=== PATIENT | female | born 1960 | race African-American/Black ===

== ENCOUNTER → 2020-06-22 13:52 | Outpatient (CLI) | payer BC, SELFPAY ==
--- NOTE | ~2020-06-22 | US_ITS ---
EXAMINATION: US abdomen complete EXAM DATE: 06/22/2020 14:13 INDICATION: Epigastric chest pain, irregular bowel movements. Bloating, gas. Cholecystectomy. TECHNIQUE: Multiple grayscale and Doppler images of the complete abdomen were obtained (by a technolo gist who performed the scan) and subsequently reviewed. Comparison is made to prior examination from 05/02/2015. FINDINGS: The abdominal aorta is normal in caliber. Visualized portion IVC is patent. The pancreatic head a nd body are normal in appearance. The pancreatic tail is not visualized. Mildly echogenic liver parenchyma, hepatic steatosis. There are no focal liver lesions identified. There is no evidence of intrahepatic biliary duct dilation. Portal venous flow was seen in the hepa topedal, normal direction and has normal Doppler waveform. Common bile duct measures 7 mm, which is normal. The gallbladder fossa is unremarkable. Right kidney: There is normal contour and echogenicity. It measures 11.3 x 3.7 x 5.7 centimeters. There are no focal renal lesions identified. There is no hydronephrosis. Left kidney: There is normal contour and echogenicity. It measures 10.3 x 4.2 x 5.5 centimeters. T here are no focal renal lesions identified. There is no hydronephrosis. The spleen measures 7 centimeters and is morphologically normal. IMPRESSION: 1. Hepatic steatosis. Reviewed, dictated and finalized at location B. IMPRESSION: 1. Hepatic steatosis.
== END ==
PROVIDERS: PCP Family Medicine; Visit Provider Family Medicine
DX: R10.13 Epigastric pain (principal); K76.0 Fatty (change of) liver, not elsewhere classified
CPT/HCPCS: 76700

== ENCOUNTER 2020-11-18 09:07 | Outpatient (CLI) | payer BC, SELFPAY ==
--- NOTE | ~2020-11-18 | MM_ITS ---
EXAMINATION: MM screening [facility] BI w julian HISTORY: Screening TECHNIQUE: Craniocaudal and mediolateral oblique 3-D tomosynthesis images were obtained and synthetic 2-D images were generated. CAD analysis was submitted and interpreted. COMPARISON: Comparison to multiple prior studies sequentially, with oldest reviewed study dated 11/22. BREAST PARENCHYMAL COMPOSITION: There are scattered areas of fibroglandular density. FINDINGS: Stable benign left breast mass, lower central aspect. Stable benign-appearing bilateral dante ast calcifications. There is no evidence of suspicious mass, calcification, or architectural distorti on to suggest malignancy in either breast. There has been no suspicious interval change. IMPRESSION: 1. No mammographic evidence of malignancy. 2. Recommend routine screening mammography in one year. BI-RADS Category 2: Benign finding(s). Reviewed, dictated and finalized at location A. 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
== END 2020-11-18 09:08 | disposition home or self-care (01) ==
LOC: ANHIMG 09:09
PROVIDERS: PCP Family Medicine; Visit Provider Nurse Practitioner
DX: Z12.31 Encounter for screening mammogram for malignant neoplasm of breast (principal)
CPT/HCPCS: 77063; 77067

== ENCOUNTER 2021-12-10 12:37 | Outpatient (CLI) | payer BC, SELFPAY ==
[2021-12-10 13:34] LABS: Anion Gap 7 mmol/L (8-16); Blood Urea Nitrogen 14 mg/dL (7-17); Calcium 9.4 mg/dL (8.4-10.2); Carbon Dioxide 32 mmol/L (22-30); Chloride 100 mmol/L (98-107); Estimated Glomerular Filt Rate > 60; Glucose 96 mg/dL (65-110); Potassium 3.7 mmol/L (3.4-5.0); Sodium 139 mmol/L (137-145)
== END 2021-12-10 12:38 | disposition home or self-care (01) ==
PROVIDERS: PCP Family Medicine; Visit Provider Anesthesiology
DX: Z01.818 Encounter for other preprocedural examination (principal); R73.03 Prediabetes; I10 Essential (primary) hypertension
CPT/HCPCS: 36415; 80048

== ENCOUNTER 2021-12-15 00:13 | Day surgery (SDC) | payer BC, SELFPAY ==
[2021-12-07 09:32] VITALS: BMI 32.0
--- NOTE | 2021-12-07 09:33 | PC.NURSE ---
Report to the Outpatient Waiting Room, entrance under the green pavilion located off [facility], at time _0700__ on date _12-15-21_. OR Time: _0900_. - You will be asked a series of questions to screen for COVID 19 for your protection. - A mask is required within the hospital. - No visitors are allowed at this time. Preoperative COVID Testing Requirements: No COVID Test needed if: (proof is required; if not received patient will have Rapid Test prior to entry) - Patient has received COVID Vaccine at least 14 days prior to procedure date or - Patient has positive COVID test result within last 90 days of surgery date. COVID Test needed if above criteria is not met If not COVID vaccinated a COVID test must be conducted within 72 hours of surgery and patient is asked to isolate self from time of testing until procedure. You will go to the [employer] [facility] Testing Site for your COVID testing. The [employer] [facility] Testing site is located at the corner of [address] from [facility]. You will only be called if COVID results are positive and your surgeon may reschedule your elective surgery date. Patients may have clear liquids (water, carbonated beverages, clear teas, apple juice) until 3 hours prior to surgery with a maximum of 20 ounces. - No food from midnight until time of surgery - Infants may have breast milk until 4 hours before surgery, formula 6 hours prior to surgery. - Children will be allowed to drink immediately following surgery. If applicable, please bring a bottle or sippy cup to assist with drinking. Juice, water, soda, and popsicles are readily available. For infants on formula, please bring formula the day of surgery. Pacifiers are allowed. Take the following medications with a SIP of water the morning of surgery: Aripiprazole and flonase Medications to discontinue per physician Date to take last dose Please no make-up, nail maltese, hairspray, perfume, deodorant, or body powder the day of surgery. No jewelry (including any body piercings) or valuables the day of surgery, leave them at home. Please take a shower or bath the night before, or the morning of, surgery with an antibacterial soap. Wear comfortable, loose fitting clothing. Children are encouraged to wear pajamas. - Jewelry must be removed prior to entering the operating room. Rings and piercings that are not removed may be cut off. - The hospital will not accept responsibility for valuables. - Please leave all valuables, including medications, at home the day of surgery. If you are going home after surgery, a licensed diesel truck driver must drive you home. - NO public transportation without another adult. - We recommend that an adult stay with you for 24 hours following discharge. - We also recommend that you do not drive, make important decision, drink alcoholic beverages, or take any drugs that were not prescribed by your health care provider for at least 24 hours after your discharge time. For Pediatric surgeries, we recommend two adults accompany the child home (only one inside the building at this time). Follow any additional instructions given to you from your surgeon. Telephone instructions given to Patient____and asked if any additional questions and then verbalized understanding. Patient advised to call surgeon office or pre surgery nurse liaison [phone] if any additional questions.
--- NOTE | 2021-12-15 07:09 | WPDHPUPDATE1 ---
History and Physical Update Update Date/Time: 12/15/21 07:09 History and Physical has been reviewed, including an updated exam of the patient. There are NO changes in the patient's condition. Risks, benefits, and alternatives have been discussed and questions answered. Patient agrees to proceed with procedure.
--- NOTE | 2021-12-15 07:17 | WPDANESEPPF ---
Anes - Initial Pre Proc Eval Procedure: Operation Date: 12/15/21 09:00 Proposed Procedures p Right Open Carpal Tunnel Release - Johnnie Elizabeth MD Date/Time: 12/15/21 07:17 Surgeon: Johnnie Elizabeth MD Pre Op Diagnosis: Rt Carpal Tunnel Syndrome Patient Data Age: 61 Gender: F Height: 1.73 m Weight: 95.5 kg Allergies Allergy/AdvReac Type Severity Reaction Status Date / Time tetracycline Allergy Unknown hives Verified 12/15/21 07:29 Home Medications Medication Instructions Recorded Confirmed Type blood sugar diagnostic #100 each 06/18/20 06/18/20 Rx lancets #100 each 06/18/20 06/18/20 Rx cetirizine 10 mg tablet 10 mg PO DAILY #30 tablet 11/26/20 12/15/21 Rx aripiprazole 2 mg tablet 2 mg PO DAILY #30 tablet 05/07/21 12/15/21 Rx fluticasone propionate 50 1 spray NASAL DAILY #15.8 ml 06/02/21 12/15/21 Rx mcg/actuation nasal spray,suspension montelukast 10 mg tablet 10 mg PO DAILY #30 tablet 07/06/21 12/15/21 Rx omeprazole 20 mg capsule,delayed 20 mg PO BID #60 cap 08/22/21 12/15/21 Rx release hydrochlorothiazide 12.5 mg tablet 12.5 mg PO DAILY #90 tablet 10/31/21 12/15/21 Rx lisinopril 40 mg tablet 40 mg PO DAILY #30 tablet 12/05/21 12/15/21 Rx buspirone 5 mg PO HS 12/07/21 12/15/21 History Patient hx anesthesia problems: none Family hx anesthesia problems: none Results Review: All pre-operative results and documents have been reviewed as part of the pre-operative evaluation. [facility] Past Medical History Medical History (Updated 12/15/21 @ 07:18 by Dante Das DO) Anxiety Depression Diabetes type 2, controlled GERD (gastroesophageal reflux disease) Hyperlipidemia Hypertension Irritable bowel syndrome Pre-diabetes Thyroid nodule Surgical History Surgical History (Updated 12/15/21 @ 07:18 by Dante Das DO) H/O: hysterectomy History of appendectomy History of cataract surgery History of cholecystectomy Family History Family History (Reviewed 06/02/21 @ 11:41 by Janel Montiel [facility]) Mother Family history of malignant neoplasm of breast in first degree relative Sibling Family history of malignant neoplasm of breast in first degree relative Social History Social History (Reviewed 06/02/21 @ 11:41 by Janel Montiel [facility]) Smoking packs per day: 0.5 Smoking cigarettes per day: 10.0 Years smoked: 8 Smoking pack-years: 4.00 Smoking status: Former smoker Tobacco type: cigarettes Second hand tobacco smoke exposure: No Smoking end date: 12/07/91 Alcohol intake: never Living arrangements: with family Spiritual care concerns: No Anes - Eval Final PreProcedure Day of Procedure 12/15/21 07:17 Patient weight: obese Heart: regular rate and rhythm Lungs: clear to auscultation and normal air movement Airway: Mallampati scale class II Neurological: alert and oriented Last oral intake: >/= 8 hours ASA classification: III Emergent: no Anesthetic plan: proceed Anesthesia type and monitoring: general GIVS and standard monitoring Results Review: All pre-operative results and documents have been reviewed as part of the pre-operative evaluation. Informed Consent: The patient's anesthetic plan and its attendant risks and benefits were discussed with the patient/family/POA. Questions were solicited and answers provided to the satisfaction of the patient/family/POA.
[2021-12-15 07:21] VITALS: BP 149/88; PULSE 72; RESP 16; TEMP 36.6; O2SAT 100; BMI 32.5
[2021-12-15] MEDS: LACTATED RINGERS 1,000 ML 30 ML IV CONT (07:40)
[2021-12-15] MEDS: LIDO 1%/EPINEPHRINE 1:100,000 50 ML VIAL INFILTRATE (08:50)
[2021-12-15 09:04] VITALS: BP 104/60; PULSE 96; RESP 16; O2SAT 97
--- NOTE | 2021-12-15 09:13 | W.PM.PROC2 ---
Procedure Note - Detailed Date of Procedure 12/15/21 Pre-op Diagnosis Rt Carpal Tunnel Syndrome Post-op Diagnosis same Procedure Performed Right open carpal tunnel release Surgeon Johnnie Elizabeth MD Household Refrigeration Mechanic Elieser Anesthesia MAC Description of Procedure The right carpal tunnel area was marked holding area. Patient occurred. Patient was taken to the operating room placed supine on the operating table. A time-out was held and confirmed. She was given some IV sedation and the right upper extremity was prepped and draped in usual fashion. The area was remarked for the incision and locally infiltrated with 1% lidocaine with epinephrine. The tourniquet was not utilized. The incision was made as marked and dissection was carried through the subcutaneous tissue to the palmar aponeurosis. The this and carpal retinaculum were incised with a 15. Blade. The ligament was divided distally and proximally under 3 point retraction. No unusual anatomy was noted. Skin was closed with 5 0 nylon suture small bandage applied. The patient is discharged from the operating room stable condition. She has instructions in wound care and follow-up prescription for hydrocodone 5/325 7. Was sent Estimated Blood Loss 1 Tourniquet Time 0 Drains No Packing No Pathology none sent Complications No immediate complications Condition stable Disposition same day
[2021-12-15 09:35] VITALS: BP 105/61; PULSE 85; O2SAT 98
[2021-12-15 10:05] VITALS: BP 146/82; PULSE 55
== END 2021-12-15 10:28 | disposition home or self-care (01) ==
PROVIDERS: PCP Family Medicine; Visit Provider Plastic Surgery
PROC: (CPT 64721; principal; 2021-12-15 09:00)
DX: G56.01 Carpal tunnel syndrome, right upper limb (principal); I10 Essential (primary) hypertension; E11.9 Type 2 diabetes mellitus without complications; E78.5 Hyperlipidemia, unspecified; K58.9 Irritable bowel syndrome, unspecified; K21.9 Gastro-esophageal reflux disease without esophagitis; F41.8 Other specified anxiety disorders; Z87.891 Personal history of nicotine dependence; E66.9 Obesity, unspecified; Z68.32 Body mass index [BMI] 32.0-32.9, adult
CPT/HCPCS: 64721; A9270; J2250; J2405; J2704; J3010; J7120

== ENCOUNTER 2021-12-20 08:39 | Outpatient (CLI) | payer BC, SELFPAY ==
--- NOTE | ~2021-12-20 | MM_ITS ---
EXAMINATION: MM screening [facility] BI w julian HISTORY: Screening TECHNIQUE: Craniocaudal and mediolateral oblique 3-D tomosynthesis images were obtained and synthetic 2-D images were generated. CAD analysis was submitted and interpreted. COMPARISON: Comparison to multiple prior studies sequentially, with oldest reviewed study dated 02/2016. BREAST PARENCHYMAL COMPOSITION: There are scattered areas of fibroglandular density. FINDINGS: There is a new mass in the upper outer quadrant of the left breast, middle third. There are scattered benign-appearing calcifications. No mammographic evidence for malignancy in the right [address]. IMPRESSION: 1. New mass upper outer quadrant of the left breast. 2. Additional spot compression and mediolateral views with possible follow-up breast ultrasound recom mended. BI-RADS Category 0: Incomplete: Needs additional imaging evaluation. Reviewed, dictated and finalized at location A. OBJECTS SUPERVISOR IMPRESSION: 1. New mass upper outer quadrant of the left breast. 2. Additional spot compression and mediolateral views with possible follow-up b reast ultrasound recommended. BI-RADS Category 0: Incomplete: Needs additional imaging evaluation.
== END 2021-12-20 08:40 | disposition home or self-care (01) ==
LOC: ANHIMG 08:41
PROVIDERS: PCP Family Medicine; Visit Provider Nurse Practitioner
DX: Z12.31 Encounter for screening mammogram for malignant neoplasm of breast (principal); R92.8 Other abnormal and inconclusive findings on diagnostic imaging of breast
CPT/HCPCS: 77063; 77067

== ENCOUNTER 2021-12-28 12:27 | Outpatient (CLI) | payer BC, SELFPAY ==
--- NOTE | 2021-12-28 12:43 | ECG_ITS ---
Measurements Intervals [place] Rate: 59 P: 33 NV: 156 QRS: 39 QRSD: 97 T: 4 QT: 453 QTc: 451 Interpretive Statements SINUS BRADYCARDIA BORDERLINE T WAVE ABNORMALITY- INFERIOR LEADS BASELINE WANDER- I, II, III, AVR, AVL, AVF, V1-V6 BORDERLINE ECG Electronically Signed On 12-28-2021 14:00:43 CENTRAL OFFICE MECHANIC by Christopher Aviles D.O.
== END 2021-12-28 12:28 | disposition home or self-care (01) ==
PROVIDERS: PCP Family Medicine; Visit Provider Family Medicine
DX: R55 Syncope and collapse (principal); R94.31 Abnormal electrocardiogram [ECG] [EKG]
CPT/HCPCS: 93005

== ENCOUNTER 2022-01-05 11:43 | Outpatient (CLI) | payer BC, SELFPAY ==
--- NOTE | ~2022-01-05 | MMUS_ITS ---
EXAMINATION: MM diagnostic singh LT w julian, US breast LT limited HISTORY: Left breast mass on screening mammogram TECHNIQUE: Additional 3-D tomosynthesis images of the left breast were performed and synthetic 2-D im ages were generated. CAD analysis was submitted and interpreted. High resolution limited left breast ultrasound was performed. COMPARISON: 12/20/2021, 11/18/2020, 09/29/2019 FINDINGS: MAMMOGRAPHIC FINDINGS: There is a 6 mm oval, circumscribed, low density mass in the posterior third of the lower-outer breas t at the 4:00 location 10 cm from the nipple. No associated calcification or architectural distortion are identified. ULTRASOUND: There is no evidence of focal abnormal solid or cystic mass in the vicinity of the mammographic findi ng in question. IMPRESSION: 1. Probably benign left breast mass. 2. Recommend 6 month follow-up left diagnostic mammogram with possible ultrasound. BI-RADS category 3, probably benign findings. Reviewed, dictated and finalized at location A. CE FILLER IMPRESSION: 1. Probably benign left breast mass. 2. Recommend 6 month follow-up left diagnostic mammogram with possible ultrasou nd. BI-RADS category 3, probably benign findings.
== END 2022-01-05 11:44 | disposition home or self-care (01) ==
LOC: ANHIMG 11:45
PROVIDERS: PCP Family Medicine; Visit Provider Obstetrics & Gynecology Gynecology
DX: R92.8 Other abnormal and inconclusive findings on diagnostic imaging of breast (principal)
CPT/HCPCS: 76642; 77061; 77065; G0279

== ENCOUNTER 2022-02-28 16:55 | Outpatient (CLI) | payer BC, SELFPAY ==
--- NOTE | ~2022-02-28 | DEXA_ITS ---
Bone Density Report Name: RITA JACKSON Age: 61 Sex: Female Ethnicity: Black Date of : 1960 Indication: postmenopausal; screening for osteoporosis; height loss; hysterectomy; Referring Provider: JULIANA, ATUL Study: Bone densitometry was performed. Exam Date: February 28, 2022 Accession number: [id number] Bone Density: Region BMD T-score Z-score Classification AP Spine(L1-L4) 1.112 0.6 1.3 Normal Femoral Neck (Left) 0.897 0.4 0.7 Normal Total Hip (Left) 0.960 0.1 0.4 Normal Femoral Neck (Right) 0.829 -0.2 0.3 Normal Total Hip (Right) 0.983 0.3 0.5 Normal Total Hip Mean 0.972 0.2 0.5 Normal World Health Organization criteria for BMD impression classify patients as: Normal (T-score at or above -1.0), Osteopenia (T-score between -1.0 and -2.5), or Osteoporosis (T-score at or below -2.5). 10-year Fracture Risk: FRAX not reported because: All T-scores for Spine Total, Hip Total, Femoral Neck at or above -1.0 Previous Exams: Region Exam Age BMD T-score BMD Change BMD Change Date g/cm2 vs Baseline vs Previous AP Spine (L1-L4) 02/28/2022 61 1.112 0.6 -0.026 (-2.3%) -0.026 (-2.3%) 05/06/2018 58 1.137 0.8 Total Hip(Left) 02/28/2022 61 0.960 0.1 -0.103 (-9.7%) -0.103 (-9.7%) 05/06/2018 58 1.063 1.0 Total Hip(Right) 02/28/2022 61 0.983 0.3 -0.081 (-7.6%) -0.081 (-7.6%) 05/06/2018 58 1.064 1.0 *Denotes significance at 95% confidence level, LSC for AP Spine = 0.022 g/cm2, LSC for Total Hip = 0.027 g/cm2 Clinical Information Provided by Patient: Has used the following medications: Vitamin D Has the following medical conditions: Hysterectomy Patient maximum height was 68 Menopause Age: 54 No regular weight bearing exercise Onset of menses at age 12 Number of children 2 Impression: The patient has normal bone mass. The BMD for the AP Spine (L1-L4) decreased, changing by -2.3% since the last DXA exam. The BMD for the Total Hip(Left) decreased, changing by -9.7% since the last DXA exam. The BMD for the Total Hip(Right) decreased, changing by -7.6% since the last DXA exam. Discussion: BONE DENSITY IS ABOVE THE MINIMUM DESIRABLE LEVEL AT ALL SKELETAL SITES TESTED. This patient?s bone mineral density is above the minimum desirable level (T-score -1.0 or better) at all sites measured. The patient should follow a healthful lifestyle (good nutrition with adequate calcium and vitamin D, and appropriate
== END 2022-02-28 16:56 | disposition home or self-care (01) ==
LOC: ANHIMG 16:57
PROVIDERS: PCP Family Medicine; Visit Provider Nurse Practitioner
DX: Z78.0 Asymptomatic menopausal state (principal)
CPT/HCPCS: 77080

== ENCOUNTER 2022-07-11 11:15 | Outpatient (CLI) | payer OTHER, SELFPAY ==
--- NOTE | ~2022-07-11 | MMUS_ITS ---
EXAMINATION: MM diagnostic singh LT w julian, US breast LT limited HISTORY: 6 mm oval circumscribed low-density mass in posterior third of lower outer left breast at 4: 00 location 10 cm from nipple reported on 01/05/2022 diagnostic left mammogram TECHNIQUE: Additional 3-D tomosynthesis images of the left breast were performed and synthetic 2-D im ages were generated. CAD analysis was submitted and interpreted. High resolution targeted 2-4 o'clock left breast ultrasound was performed. COMPARISON: 01/05/2022 diagnostic left mammogram and limited left breast ultrasound 12/20/2021, 11/18/2020, 09/29/2019 bilateral mammogram examinations 10/31/2018 diagnostic left mammogram and complete left breast ultrasound examination 10/15/2018 bilateral screening mammogram FINDINGS: MAMMOGRAPHIC FINDINGS: There is suggestion of a 4 mm circumscribed mass in the posterior outer mid left breast. There is a s imilar finding on 10/15/2018 bilateral screening mammogram. ULTRASOUND: No sonographic correlate is identified for the mammographic finding. IMPRESSION: 1. Probable benign lateral left mammographic finding without sonographic correlate 2. Six-month diagnostic bilateral mammogram follow-up is recommended, with ultrasound if required BI-RADS Category 3: Probably benign finding Reviewed, dictated and finalized at location A. IMPRESSION: 1. Probable benign lateral left mammographic finding without sonographic correl ate 2. Six-month diagnostic bilateral mammogram follow-up is recommended, with ultr asound if required BI-RADS Category 3: Probably benign finding
== END 2022-07-11 11:16 | disposition home or self-care (01) ==
PROVIDERS: PCP Family Medicine; Visit Provider Obstetrics & Gynecology Gynecology
DX: N63.20 Unspecified lump in the left breast, unspecified quadrant (principal); R92.8 Other abnormal and inconclusive findings on diagnostic imaging of breast
CPT/HCPCS: 76642; 77061; 77065; G0279

== ENCOUNTER 2022-08-15 12:05 | Outpatient (CLI) | payer OTHER, SELFPAY ==
--- NOTE | ~2022-08-15 | MMUS_ITS ---
EXAMINATION: MM diagnostic singh RT w julian, US breast RT limited HISTORY: Palpable right breast abnormality at the junction of the breasts and chest wall. TECHNIQUE: Additional 3-D tomosynthesis images of the right breast were performed and synthetic 2-D i mages were generated. CAD analysis was submitted and interpreted. High resolution Limited right breas t ultrasound was performed. COMPARISON: Comparison to multiple prior studies sequentially, with oldest reviewed study dated 09/06. BREAST PARENCHYMAL COMPOSITION: BREAST PARENCHYMAL COMPOSITION: There are scattered areas of fibroglandular density. FINDINGS: MAMMOGRAPHIC FINDINGS: In the area of palpable concern adjacent to the chest wall centrally on CC view there is a focal dens ity. No discrete mass identified. No suspicious calcifications or architectural distortion. ULTRASOUND: Limited right breast ultrasound: At 6:00, 15 cm from the nipple in the area of palpable concern there is an oval hypoechoic mass located in the subcutaneous tissues which measures 6 x 5 mm. There is mar ginal vascularity. There is parallel orientation with mixed posterior attenuation. IMPRESSION: 1. Oval hypoechoic right breast mass located at 6:00, 15 cm from the nipple. This most likely is a be nign complicated sebaceous cyst. 2. Recommend 6 month follow-up right breast ultrasound BI-RADS category 3, probably benign findings. Reviewed, dictated and finalized at location A. IMPRESSION: 1. Oval hypoechoic right breast mass located at 6:00, 15 cm from the nipple. Th is most likely is a benign complicated sebaceous cyst. 2. Recommend 6 month follow-up right breast ultrasound BI-RADS category 3, probably benign findings.
== END 2022-08-15 12:06 | disposition home or self-care (01) ==
PROVIDERS: PCP Family Medicine; Visit Provider Nurse Practitioner
DX: N63.25 Unspecified lump in the left breast, overlapping quadrants (principal); R92.8 Other abnormal and inconclusive findings on diagnostic imaging of breast
CPT/HCPCS: 76642; 77061; 77065; G0279

== ENCOUNTER 2023-01-08 11:27 | Outpatient (CLI) | payer OTHER, SELFPAY ==
--- NOTE | ~2023-01-08 | MM_ITS ---
EXAMINATION: MM diagnostic singh BI w julian HISTORY: Six-month follow-up for probably benign right breast mass TECHNIQUE: Craniocaudal, mediolateral, and mediolateral oblique 3-D tomosynthesis images of the breas ts were performed and synthetic 2-D images were generated. CAD analysis was submitted and interpreted . COMPARISON: 08/15/2022, 07/11/2022, 01/05/2022, 12/20/2021 BREAST PARENCHYMAL COMPOSITION: There are scattered areas of fibroglandular density. FINDINGS: The previously described sebaceous cyst of the right breast. No suspicious mass, calcificat ion, or architectural distortion are identified in either breast to suggest malignancy. There has bee n no suspicious interval change. IMPRESSION: 1. No mammographic evidence of malignancy. 2. Recommend routine screening mammography in one year. BI-RADS Category 1: Negative Reviewed, dictated and finalized at location A. CIPAL TECHNICAL ARCHITECT
== END 2023-01-08 11:28 | disposition home or self-care (01) ==
LOC: ANHIMG 11:29
PROVIDERS: PCP Family Medicine; Visit Provider Obstetrics & Gynecology Gynecology
DX: N63.20 Unspecified lump in the left breast, unspecified quadrant (principal)
CPT/HCPCS: 77062; 77066; G0279

== ENCOUNTER 2024-03-24 13:07 | Outpatient (CLI) | payer OTHER, SELFPAY ==
--- NOTE | ~2024-03-24 | MM_ITS ---
EXAMINATION: MM screening singh BI w julian HISTORY: Screening TECHNIQUE: Craniocaudal and mediolateral oblique 3-D tomosynthesis images were obtained and synthetic 2-D images were generated. CAD analysis was submitted and interpreted. COMPARISON: Comparison to multiple prior studies sequentially, with oldest reviewed study dated 11/18. BREAST PARENCHYMAL COMPOSITION: Not dense: There are scattered areas of fibroglandular density. FINDINGS: There is no evidence of suspicious mass, calcification, or architectural distortion to sugg est malignancy in either breast. There has been no suspicious interval change. IMPRESSION: 1. No mammographic evidence of malignancy. 2. Recommend routine screening mammography in one year. BI-RADS Category 1: Negative Reviewed, dictated and finalized at location A.
== END 2024-03-24 13:08 | disposition home or self-care (01) ==
LOC: ANHIMG 13:11
PROVIDERS: PCP Family Medicine; Visit Provider Nurse Practitioner
DX: Z12.31 Encounter for screening mammogram for malignant neoplasm of breast (principal)
CPT/HCPCS: 77063; 77067

== ENCOUNTER 2024-05-16 12:57 | Outpatient (CLI) | payer OTHER, SELFPAY ==
--- NOTE | ~2024-05-16 | XR_ITS ---
EXAMINATION: XR lumbar spine min 4V DATE: 05/16/2024 13:15 INDICATION: Low back pain. Left hip pain. TECHNIQUE: 5 views of lumbar spine were obtained. COMPARISON: None. FINDINGS: There is 3 degrees dextrocurvature of thoracolumbar spine. There is 3 mm anterolisthesis of L4 on L5. Vertebral body heights are normal. There is mildly decreased disc height at L4-L5 and L5-S 1. There is multilevel facet joint osteoarthritis, severe in lower lumbar spine. Surgical clips in th e right upper quadrant are likely from cholecystectomy. IMPRESSION: 1. Mild lumbar spondylosis. Reviewed, dictated and finalized at location E. IMPRESSION: 1. Mild lumbar spondylosis.
--- NOTE | ~2024-05-16 | XR_ITS ---
AP and lateral views of the left hip Clinical history: Pain Findings: No acute fracture or dislocation is seen. Osseous alignment is anatomic. Left hip joint is preserved. Soft tissues are unremarkable. Impression: No significant abnormality is seen. Reviewed, dictated and finalized at location M. Impression: No significant abnormality is seen.
== END 2024-05-16 12:58 | disposition home or self-care (01) ==
PROVIDERS: PCP Family Medicine; Visit Provider Family Medicine
DX: M25.552 Pain in left hip (principal); M47.896 Other spondylosis, lumbar region
CPT/HCPCS: 72110; 73502

== ENCOUNTER 2024-11-27 13:10 | Outpatient (CLI) | payer OTHER, SELFPAY ==
--- NOTE | ~2024-11-27 | MM_ITS ---
EXAMINATION: MM diagnostic singh BI w julian HISTORY: Breast pain TECHNIQUE: Additional 3-D tomosynthesis images of the breasts were performed and synthetic 2-D images were generated. CAD analysis was submitted and interpreted. COMPARISON: Comparison to multiple prior studies sequentially, with oldest reviewed study dated 12/20. BREAST PARENCHYMAL COMPOSITION: Not dense: There are scattered areas of fibroglandular density. FINDINGS: The breasts are stable. No new masses, calcifications or architectural distortion in either breast to suggest malignancy. IMPRESSION: 1. No evidence for malignancy in either breast. 2. Routine yearly screening mammogram and regular clinical breast examination are recommended. BI-RADS Category 1: Negative Reviewed, dictated and finalized at location A. UELS PLANT OPERATIONS ENGINEER IMPRESSION: 1. No evidence for malignancy in either breast. 2. Routine yearly screening mammogram and regular clinical breast examination a re recommended. BI-RADS Category 1: Negative
== END 2024-11-27 13:11 | disposition home or self-care (01) ==
PROVIDERS: PCP Family Medicine; Visit Provider Nurse Practitioner
DX: N64.4 Mastodynia (principal)
CPT/HCPCS: 77062; 77066; G0279

== ENCOUNTER 2024-12-15 10:31 | Outpatient (CLI) | payer OTHER, SELFPAY ==
--- NOTE | ~2024-12-15 | US_ITS ---
EXAMINATION: US abdomen limited DATE: 12/15/2024 11:15 INDICATION: Right upper quadrant abdominal pain TECHNIQUE: Multiple grayscale and Doppler ultrasound images of the abdomen were obtained. COMPARISON: 06/22/2018 FINDINGS: The pancreatic head and body are normal in appearance. The pancreatic tail is not visualized. Liver has normal contour, with a smooth surface. There is increased parenchymal echogenicity and coarsened echotexture consistent with diffuse hepatic steatosis. No liver lesion identified. No intrahepatic b iliary duct dilation suspected. Portal venous flow was seen in the hepatopetal, normal direction and has normal Doppler waveform. The gallbladder is nonvisualized and likely surgically absent. The commo n bile duct measures 4.5 mm in maximal diameter which is normal. 1.2 cm anechoic cyst at the interpol ar right kidney which demonstrates normal contour and axis with no hydronephrosis. Visualized proxima l inferior vena cava and aorta are normal. IMPRESSION: 1. Diffuse hepatic steatosis. 2. Status post cholecystectomy with no intra or extrahepatic biliary ductal dilation. Reviewed, dictated and finalized at location [facility] IMPRESSION: 1. Diffuse hepatic steatosis. 2. Status post cholecystectomy with no intra or extrahepatic biliary ductal dil ation.
--- OUTSIDE RECORDS SUMMARY | 2024-12-15 11:24 | XMS_ITS | Continuity of Care Document ---
Author Organization [facility] Address [address] [place] [address] Exec [address] [facility] [address] [place] [address] Phone Care Team Providers Care Gunner'S Mate G Name Role Phone Andrae Dave Unavailable Unavailable Procedures Procedure Date Visual Field Examination(s) Advance Directives Directive Yes / No Effective Date File Name No Information Encounters Encounter Description Practice Location Reason(s) For Visit Diagnoses Date Provider Providers Copied on Encounter [facility], [address] [place] [address] [address], [place], [place], [id number], tel:[phone] [facility] No Information 3-200 [address] Doisy Edward. [address] , [address], [place], [place], [facility], [place]. tel:[phone] Referring Provider: John Smith, [address] [place] [address] [address], [place], [place], [facility]. tel:[phone] Family History Family Member Type Diagnosis Age At Onset No Information Payers Payer name Insurance type Covered alliance party ID Authorbja jordi(s) [facility] CI [id number] Social History Type Description Quantity Date Captured Comments Sex Female Smoking Status No Information Chief Complaint And Reason For Visit No Information Reason For Referral Reason For Referral No Information History Of Present Illness Encounter Date Complaint History Of Prese nt Illness No Information Functional Status Date Functional Assessmen t No Information Instructions Date Instruction Additional Infor mation No Information Assessments Type Assessment Date No Information Patient Care Teams Name Effective Dates (start - stop) Status Members No Information
--- OUTSIDE RECORDS SUMMARY | 2024-12-15 11:24 | XMS_ITS | Clinical Summary ---
Author Organization [facility] Address [address] [place] [address] Care Team Providers Care Tail Worker Name Role Phone Marlen Norris MD Primary Care Provider [phone] Source Comments [facility],non-owned Affiliates and Associated Physician Practices is amultiple site organization consisting of ambulatory clinics and hospital sitesin [place], [place] and [place]. This disclosure is being madepursuant to the Care Everywhere program and may not contain all information available regarding this patient. Last updated 18.[facility] Social History Tobacco Use Types Packs/Day Years Used Date Smoking Tobacco: Never Assessed Sex and Gender Information Value Date Recorded Sex Assigned at Not on file Gender Identity Not on file Sexual Orientation Not on file Plan of Treatment Health Maintenance Due Date Last Done Comments COLOGUARD (AGES 45-75) - COL ON CA SCREENING 1960 COLON MONITORING 1960 COLONOSCOPY - COLON CA SCREENING 1960 CT COLONOGRAPHY - COLON CA SCREENING 1960 Colorectal Cancer Screening 1960 FIT - COLON CA SCREENING 1960 FLEX SIG - COLON CA SCREENING 1960 LIPID TESTING 1960 MAMMOGRAM 1960 PAP SMEAR 1960 HIV SCREENING 1975 HEPATITIS C SCREENING 04/24/1978 DTAP/TDAP/TD VACCINES (1 - Tdap) 1979 PNEUMOCOCCAL VACCINE 50+ (1 of 1 - PCV) 2010 ZOSTER VACCINE (1 of 2) 2010 COVID-19 VACCINE ( - 2023-2 5 season) 2024 INFLUENZA VACCINE (#1) 2024 DEPRESSION SCREENING 11/05/2024 Respiratory Syncytial Virus (RSV) Vaccine Pt: or over 60 yrs (1 - 1-dose 75+ series) 2035 HEPATITIS B VACCINE Aged Out No longe r eligible based on patient's age to complete this topic HIB VACCINE Aged Out No longer eligi ble based on patient's age to complete this topic HPV VACCINE Aged Out No longer eligi ble based on patient's age to complete this topic MENINGOCOCCAL (Group B) VACCINE Aged Out No longer eligible based on patient's age to complete this topic MENINGOCOCCAL VACCINE Aged Out No kristin shira eligible based on patient's age to complete this topic PNEUMOCOCCAL VACCINE Aged Out No long er eligible based on patient's age to complete this topic Care Teams Tail Worker Relationship Specialty Start Date End Date Marlen Norris MD [address] [place] [address] PCP - General Family Medicine 09/30/19
--- OUTSIDE RECORDS SUMMARY | 2024-12-15 11:24 | XMS_ITS | Clinical Summary ---
Author Organization [facility] [address] Address [address] [place] [address] Care Team Providers Care Treater Helper Name Role Phone Marlen Norris MD Primary Care Provider [phone] Allergies Active Allergy Reactions Criticality Noted Date Comments Tetracyclines Medications vitamin E 400 unit capsule take one a day 0 0 0 Active Additional Information Patient not taking.Reported on 03/12/2023 escitalopram (LEXAPRO) 20 mg tablet take 1 tablet (20MG) by ORAL route twice a day 0 0 0 Active Additional Information Patient not taking.Reported on 03/12/2023 multivitamin (MULTIPLE VITAMIN) tablet tablet take 1 tablet by ORAL route every day with food 0 0 Active Additional Information Patient not taking.Reported on 03/12/2023 ascorbic acid (ascorbic acid with josé miguel hips) 500 mg tablet take as directed 0 0 0 Active Additional Information Patient not taking.Reported on 03/12/2023 lisinopril (PRINIVIL,ZESTR IL) 10 mg tablet take 1 tablet (10MG) by ORAL route every day 0 0 Active Additional Information Patient taking differently: 40 mg, Reported on 03/12/2023 sodium chloride (SALINE NASAL MIST) 0.65 % nasal spray take as directed 0 0 0 Active Additional Information Patient not taking.Reported on 03/12/2023 fluticasone (VERAMYST) 27.5 mcg/actuation nasal spray spray 2 spray (55MCG) by Intranasal route every day in each nostril 0 0 Active montelukast (SINGULAIR) 10 mg tablet Take one by mouth one time per day 0 0 8 Active fexofenadine (DESTIN) 180 mg tablet Take one by mouth one time per day 0 0 8 Active Additional Information Patient not taking.Reported on 03/12/2023 LORazepam (ATIVAN) 0.5 mg tablet Take one by mouth one time per day at bedtime as needed 0 0 8 Active Additional Information Patient not taking.Reported on 03/12/2023 hydroCHLOROthia zide (HYDRODIURIL) 12.5 mg tablet Take one by mouth one time per day 0 0 8 Active omeprazole (PriLOSEC) 20 mg capsule Take 1 capsule (20 mg total) by mouth 2 (two) times a day 0 Active fluticasone propionate (FLONASE) 50 mcg/actuation nasal spray Administer 1 spray into each nostril daily Active simethicone (Phazyme) 250 mg capsule Take by mouth Activ e cetirizine (ZyrTEC) 10 mg tablet Take 1 tablet (10 mg total) by mouth daily 1 Active venlafaxine XR (EFFEXOR-XR) 75 mg 24 hr capsule Take 75 mg by mouth daily 1 Active busPIRone (BUSPAR) 5 mg tablet Take 5 mg by mouth nightly at bedtime. 2 Active ARIPiprazole (ABILIFY) 2 mg tablet Take 2 mg by mouth nightly 1 Active cholecalciferol (VITAMIN D-3) 1,000 unit capsule Take 1 capsule (1,000 Units total) by mouth daily 3 Active Active Problems Problem Noted Date Diagnosed Date FLOREZ (dyspnea on exertion) 01/09/2022 Syncope and collapse 01/09/2022 Hypertension 03/21/2014 Overview (02/09/2017): HYPERTENSION NOS Goiter 03/21/2014 Overview (02/09/2017): GOITER NOS Former smoker 01/17/2012 Overview (02/14/2018): Description: 01-17-2012 Surgical History Surgery Date Site/Laterality Comments TOTAL ABDOMINAL HYSTERECTOMY W/ BILATERAL SALPINGOOPHORECTOMY 11/05/2002 - 11/04/2003 Hysterectomy, total abdominal, BSO CARPAL TUNNEL RELEASE CHOLECYSTECTOMY Medical History Medical History Date Comments History of multiple allergies Al lergies Hypertension Hypertension Bradycardia Dizziness Acid indigestion Anxiety Family History Medical History Relation Name Comments Prostate cancer Father Breast cancer Mother Diabetes type II Mother Diabetes -T ype II; Cancer Sister 1 Cancer Sister 2 Cancer Sister 3 Relation Name Status Comments Father (Age 82) Mother (Age 45) Sister 1 (Age 70) Sister 2 (Age 70) Sister 3 (Age 68) Social History Tobacco Use Types Packs/Day Years Used Date Smoking Tobacco: Former Smokeless Tobacco: Never Tobacco Cessation:Counseling Given: Not Answered Alcohol Use Standard Drinks/Week Comments No 0 (1 standard drink = 0.6 oz pur e alcohol) Comments Unknown Sex and Gender Information Value Date Recorded Sex Assigned at Not on file Legal Sex Female 3:50 AM SAS SQL DEVELOPER Gender Identity Not on file Sexual Orientation Not on file Obstetrics History Last Filed Vital Signs Vital Sign Reading Time Taken Comments Blood Pressure 124/80 03/12/2023 1:03 PM CDT Pulse 70 03/12/2023 1:03 PM CDT Temperature 36.3 C (97.4 F) 04/26/2018 6:10 AM CDT Respiratory Rate - - Oxygen Saturation 98% 03/12/2023 1:03 PM CDT Inhaled Oxygen Concentration - - Weight 99.8 kg (220 lb) 03/12/2023 1:03 PM CDT Height 172.7 cm (5' 8 ) 03/12/2023 1:03 PM CDT Body Mass Index 33.45 03/12/2023 1:03 PM CDT Plan of Treatment Health Maintenance Due Date Last Done Comments Breast Cancer Screening-Mammogram 1960 Colon Cancer Screening-Colonoscopy 1960 Depression Screening 1960 Hepatitis C Screening 1960 DTaP/Tdap/Td Vaccine (1 - Tdap) 1971 Hepatitis B Screening 1978 Regular Well Visit/Exam 18-64 1978 Zoster Vaccine (1 of 2) 2010 Covid-19 Vaccine (3 2023-2 5 season) 2024 03/06/2021, 02/12/2021 Influenza Vaccine (#1) 2024 09/19/2020 Pneumococcal vaccine <65 Aged Out No longer eligible based on patient's age to complete this topic Insurance [facility] Care Teams Treater Helper Relationship Specialty Start Date End Date Marlen Norris MD PCP - General 09/09/08
--- OUTSIDE RECORDS SUMMARY | 2024-12-15 11:24 | XMS_ITS | Referral Summary ---
Author Organization [facility] [address] [facility] Address [address] [place] [address] Care Team Providers Care Photographic Platemaker Name Role Phone Marlen Norris MD Primary Care Provider [phone] Allergies Active Allergy Reactions Criticality Noted Date [...] Former smoker 01/17/2012 Overview (02/14/2018): Description: 01-17-2012 Social History Tobacco Use Types Packs/Day Years Used Date Smoking Tobacco: Former Smokeless Tobacco: Never Tobacco Cessation:Counseling Given: Not Answered Alcohol Use Standard Drinks/Week Comments No 0 (1 standard drink = 0.6 oz pur e alcohol) Comments Unknown Sex and Gender Information Value Date Recorded Sex Assigned at Not on file Legal Sex Female 3:50 AM WHIZZER HAND Gender Identity Not on file Sexual Orientation Not on file Last Filed Vital Signs Vital Sign Reading [...] 03/12/2023 1:03 PM CDT Plan of Treatment Not on file Insurance [facility] [employer] [facility] Care Teams Photographic Platemaker Relationship Specialty Start Date End Date Marlen Norris MD PCP - General 09/09/08
--- OUTSIDE RECORDS SUMMARY | 2024-12-15 11:24 | XMS_ITS | CONTINUITY OF CARE DOCUMENT ---
Author Name andrea mendez Address Unknown Organization [facility] Address [address] [place] [address] Phone [phone] Care Team Providers Care Broom Man Name Role Phone Paul Villar MD Unavailable ODALYS LOPEZ MD Unavailable ODALYS LOPEZ MD Unavailable [phone] INSURANCE PROVIDERS Payer name Policy type / Coverage type [place] red republican ID [facility] [employer] insurance [facility] [id number] [facility] [id number]
--- OUTSIDE RECORDS SUMMARY | 2024-12-15 11:24 | XMS_ITS | Clinical Summary ---
Author Organization [facility] Address [address] [place] [address] Care Team Providers Care Electric Scoop Operator Name Role Phone Marlen Norris MD Primary Care Provider [phone] Allergies Active Allergy Reactions Criticality Noted Date Comments Tetracycline Hives 11/30/2020 Medications omeprazole 20 MG capsule Take 20 mg by mouth 2 (two) times daily. 0 Active busPIRone 5 MG tablet Take 5 mg by mouth nightly at bedtime. at bedtime 1 Active cetirizine 10 MG tablet Take 10 mg by mouth daily. 1 Active montelukast 10 MG tablet Take 10 mg by mouth daily. 1 Active lisinopril 40 MG tablet Take 40 mg by mouth daily. 1 Active hydroCHLOROthia zide 12.5 MG tablet Take 12.5 mg by mouth daily. 1 Active venlafaxine XR 75 MG 24 hr capsule Take 75 mg by mouth daily. 1 Active ARIPiprazole 2 MG tablet Take 2 mg by mouth nightly. 1 Active fluticasone propionate 50 MCG/ACT nasal spray SPRAY 1 SPRAY IEN D 0 Active NYSTOP powder APPLY AA TOPICALLY BID 0 Active ONETOUCH ULTRA test strip daily. Test 0 Active Lancets (ONETOUCH DELICA PLUS [id number]) Misc daily. 0 Active polyethylene glycol packet Take 17 g by mouth as needed. Dissolve powder in 240 mL water Active docusate sodium 100 MG capsule Take 100 mg by mouth as needed for Constipation. Active Active Problems No known active problems Social History Tobacco Use Types Packs/Day Years Used Date Smoking Tobacco: Never Smokeless Tobacco: Never Alcohol Use Standard Drinks/Week Comments Not Currently 0 (1 standard drink = 0.6 oz pur e alcohol) Comments Unknown Sex and Gender Information Value Date Recorded Sex Assigned at Not on file Legal Sex Female 2:52 PM CDT Gender Identity Not on file Sexual Orientation Not on file Last Filed Vital Signs Vital Sign Reading Time Taken Comments Blood Pressure 139/93 12/06/2020 1:35 PM BB SHOT PACKER Pulse 74 12/06/2020 1:35 PM BB SHOT PACKER Temperature 36.2 C (97.1 F) 12/06/2020 12:52 PM BB SHOT PACKER Respiratory Rate 18 12/06/2020 1:35 PM BB SHOT PACKER Oxygen Saturation 100% 12/06/2020 1:35 PM BB SHOT PACKER Inhaled Oxygen Concentration - - Weight 93.9 kg (207 lb) 11/30/2020 3:21 PM BB SHOT PACKER Height 172.7 cm (5' 8 ) 11/30/2020 3:21 PM BB SHOT PACKER Body Mass Index 31.47 11/30/2020 3:21 PM BB SHOT PACKER Plan of Treatment Health Maintenance Due Date Last Done Comments Annual Physical 1963 Hepatitis C 1978 DTaP, Tdap and Td Vaccines ( 1 - Tdap) 1979 Mammogram Screening 2000 Zoster Vaccines (1 of 2) 2010 COVID-19 Vaccine ( - 2023-2 5 season) 2024 Influenza Adult (#1) 2024 09/19/2020 Colorectal Cancer Screening Colonoscopy (10 Years) 12/06/2030 12/06/2020, 12/06/2020 RSV Immunization or 60+ Years (1 - 1-dose 75+ series) 2035 Meningococcal B Vaccine Aged Out No l onger eligible based on patient's age to complete this topic Meningococcal Vaccine Aged Out No kristin shira eligible based on patient's age to complete this topic Pneumococcal Vaccine: Pediatrics (0 to 5 Years) and At-Risk Patients (6 to 64 Years) Aged Out No longer eligible b ased on patient's age to complete this topic RSV Immunizations Under 20 Months Aged Out No longer eligible b ased on patient's age to complete this topic Procedures Procedure Name Priority Date/Time Associated Diagnosis Comments COLONOSCOPY Routine 12/06/2020 10:25 AM BB SHOT PACKER from Last 3 Months or Most Recently Relevant to Health Maintenance Results * Colonoscopy (12/06/2020 10:25 AM BB SHOT PACKER) Rodriguez Amezcua MD - 12/06/2020 10:25 AM BB SHOT PACKER Rodriguez Jimenez MD 12/06/2020 1:04 PM RODRIGUEZ JIMENEZ MD, FACG, FACP COLONOSCOPY and EGD EGD INDICATION: GERD, epigastric pain and anorexia. POST-OP: Normal. SEDATION: Per Anesthesia With the patient in the left lateral decubitus position, the Olympus [id number] endoscope was used to easily intubate the esophagus and advanced to the third duodenum. Careful inspection of the mucosa was made upon insertion and withdrawal of the endoscope with retroflexion in the stomach. Findings: Esophagus: SC Jx @ 38 cm. The esophagus is normal. No esophagitis, stricture, mass or Shoemaker s . Stomach: Fundus, body and antrum normal. No ulceration, erosion, inflammation, AVM or malignancy. Duodenum: Normal in the bulb, second and third duodenum. COLONOSCOPY INDICATION: Constipation, diarrhea and weight loss. POST-OP: Normal. PREP: Good. With the patient in the left lateral decubitus position, the Olympus [id number] colonoscope was introduced into the rectum and advanced easily to the Terminal Ileum. Careful inspection of the mucosa was made upon insertion and withdrawal of the endoscope. FINDINGS: Terminal ileum: distal 5 cm normal. Cecum, ascending colon, transverse colon, descending colon, sigmoid colon and rectum including retroflexion normal. No masses, polyps, AVMs, colitis or diverticulosis seen. No complications, blood loss or implants. ASSESSMENT AND PLAN: A. GERD, epigastric pain and anorexia: - Stable on meds; continue - No esophagitis or Shoemaker s B. Constipation, diarrhea and weight loss: stable; observe. C. Unremarkable colonoscopy: screening colonoscopy in ten years. Thank you for allowing me to care for your patient. She will follow-up with Dr. Norris as needed. Rodriguez Jimenez M.D. us Rodriguez Jimenez MD GI PROCEDURE ORDERABLES Fin al Result from Last 3 Months or Most Recently Relevant to Health Maintenance Insurance [facility] Care Teams Electric Scoop Operator Relationship Specialty Start Date End Date Marlen Norris MD PCP - General FAMILY PRACTICE 12/03/20
--- OUTSIDE RECORDS SUMMARY | 2024-12-15 11:24 | XMS_ITS | Encounter Summary ---
Author Organization [facility] Address [address] [place] [address] Care Team Providers Care Level Vial Setter Name Role Phone Marlen Norris MD Primary Care Provider [phone] Encounter Details Date Type Department Care Team (Late st Contact Info) Description 12/03/2020 Prep for Procedure [facility] [place] [id number] Rodriguez Jimenez MD [address] [id number] Social History Tobacco Use Types Packs/Day Years Used Date Smoking Tobacco: Never Smokeless Tobacco: Never Alcohol Use Standard Drinks/Week Comments Not Currently 0 (1 standard drink = 0.6 oz pur e alcohol) Comments Unknown Sex and Gender Information Value Date Recorded Sex Assigned at Not on file Legal Sex Female 2:52 PM CDT Gender Identity Not on file Sexual Orientation Not on file COVID-19 Exposure Response Date Recorded In the last month, have you been in contact with someone who was confirmed or suspected to have Coronavirus / COVID-19? No / Unsure 12/06/2020 9:48 AM PATIENT CARRIER documented as of this encounter Plan of Treatment Not on file documented as of this encounter Results * PRE-SURGICAL/PRE-PROCEDURE CORONAVIRUS (COVID 19) (12/03/2020 10:36 AM PATIENT CARRIER) CORONAVIRUS SARS COV 2 PCR (RESP) NOT DETECTED NOT DETECTED 12/04/2020 4:31 PM PATIENT CARRIER [facility] Comment: A Not Detected (negative) test result for this test means that SARS- CoV-2 RNA was not present in the specimen above the limit of detection. A negative result does not rule out the possibility of COVID-19 and should not be used as the sole basis for treatment or patient management decisions. If COVID-19 is still suspected, based on exposure history together with other clinical findings, re-testing should be considered in consultation with public health authorities. Laboratory test results should always be considered in the context of clinical observations and epidemiological data in making a final diagnosis and patient management decisions. Please review the Fact Sheets and FDA authorized labeling available for health care providers and patients using the following websites: https://www.[employer].Powerspan/home/Covid-19/HCP/NAAT/fact-sheet2 https://www.[employer].Powerspan/home/Covid-19/Patients/NAAT/ fact-sheet2 This test has been authorized by the FDA under an Emergency Use Authorization (EUA) for use by authorized laboratories. Due to the current public health emergency, [facility] is receiving a high volume of samples from a wide variety of swabs and media for COVID-19 testing. In order to serve patients during this public health crisis, samples from appropriate clinical sources are being tested. Negative test results derived from specimens received in non-commercially manufactured viral collection and transport media, or in media and sample collection kits not yet authorized by FDA for COVID-19 testing should be cautiously evaluated and the patient potentially subjected to extra precautions such as additional clinical monitoring, including collection of an additional specimen. Methodology: Nucleic Acid Amplification Test (NAAT) includes RT-PCR or TMA Additional information about COVID-19 can be found at the [facility] website: www.[employer].Powerspan/Covid19. Test performed at [facility] [address] [place] [address] Director: LILI AVILEZ DO,MPH FIRST TEST YES 12/03/2020 12:44 PM [facility] EMPLOYED IN HEALTHCARE NO 12/03/2020 12:44 PM [facility] SYMPTOMATIC DEFINED BY CDC NO 12/03/2020 12:44 PM [facility] DATE OF SYMPTOM ONSET UNKNOWN 12/03/2020 1:14 PM PATIENT CARRIER [facility] HOSPITALIZATION STATUS NO 12/03/2020 12:44 PM PATIENT CARRIER [facility] PATIENT IN ICU NO 12/03/2020 12:44 PM PATIENT CARRIER [facility] RESIDENT OF CONGREGATE CARE NO 12/03/2020 12:44 PM PATIENT CARRIER [facility] UNKNOWN 12/03/2020 1:14 PM PATIENT CARRIER [facility] PATIENT'S RACE BLACK OR 12/03/2020 12:44 PM PATIENT CARRIER [facility] ETHNICITY NONHISPANIC 12/03/2020 12:44 PM PATIENT CARRIER [facility] SOURCE (QST) NASOPHARYNGEAL SWAB 12/03/2020 12:44 PM PATIENT CARRIER [facility] NASOPHARYNGEAL SWAB / Unknown 12/03/2020 10:36 AM PATIENT CARRIER us Rodriguez Jimenez MD MICROBIOLOGY - [facility] Final Result [facility] [address] [place] [address], [facility] [address] documented in this encounter Visit Diagnoses Diagnosis AP (abdominal pain)- Primary Abdominal pain, unspecified site documented in this encounter Additional Health Concerns Infection Onset Date Last Indicated Resolved Time COVID-19 Rule Out 12/03/2020 12/03/2020 12/04/2020 4:32 PM PATIENT CARRIER documented as of this encounter Care Teams Level Vial Setter Relationship Specialty Start Date End Date Marlen Norris MD PCP - General FAMILY PRACTICE 12/03/20 documented as of this encounter
--- OUTSIDE RECORDS SUMMARY | 2024-12-15 11:24 | XMS_ITS | Referral Summary ---
Author Organization [facility] Address [address] [place] [address] Care Team Providers Care Illusionist Name Role Phone Marlen Norris MD Primary Care Provider [phone] Source Comments [facility],non-owned Affiliates and Associated Physician Practices is amultiple site organization consisting of ambulatory clinics and hospital sitesin [place], [place] and [place]. This disclosure is being madepursuant to the Care Everywhere program and may not contain all information available regarding this patient. Last updated 18.[facility] [employer] Social History Tobacco Use Types Packs/Day Years Used Date Smoking Tobacco: Never Assessed Sex and Gender Information Value Date Recorded Sex Assigned at Not on file Gender Identity Not on file Sexual Orientation Not on file Plan of Treatment Not on file Care Teams Illusionist Relationship Specialty Start Date End Date Marlen Norris MD [address] [place] [address] PCP - General Family Medicine 09/30/19
--- OUTSIDE RECORDS SUMMARY | 2024-12-15 11:24 | XMS_ITS | Clinical Summary ---
Author Organization [facility] Address [address] [address] Phone Care Team Providers Care Garbage Pick Up Worker Name Role Phone Marlen Norris MD Primary Care Provider [phone] Social History Tobacco Use Types Packs/Day Years Used Date Smoking Tobacco: Never Assessed Comments Unknown Sex and Gender Information Value Date Recorded Sex Assigned at Not on file Legal Sex Female 11:24 PM CDT Gender Identity Not on file Sexual Orientation Not on file Plan of Treatment Health Maintenance Due Date Last Done Comments Hepatitis C Virus (HCV) Screening 1960 TdaP Immunization 1960 Pap Smear 1981 Cervical Cancer Screening (CCS) 1990 HPV/Cotest 1990 Colonoscopy 2005 Colorectal Cancer Screening 2005 Cologuard 2010 Immunochemical Fecal Occult Blood 2010 Mammogram 2010 Pneumococcal Immunization (5 0+ years) (1 of 1 - PCV) 2010 Zoster Immunization (1 of 2) 2010 Influenza Immunization (#1) 2024 09/19/2020 SARS-COV-2 Immunization (2023- season) 2024 03/06/2021, 02/12/2021 Respiratory Syncytial Virus (RSV) Immunization (Adult) (1 - 1-dose 75+ series) 2035 Hepatitis B Immunization Aged Out No longer eligible based on patient's age to complete this topic Meningococcal Immunization (ACWY) Aged Out No longer eligible b ased on patient's age to complete this topic Pneumococcal Immunization Combined Aged Out No longer eligible b ased on patient's age to complete this topic Rotavirus Immunization Aged Out No lo nger eligible based on patient's age to complete this topic Insurance * Guarantor: Luh Peraza Account Type Relation to Patient Date of Phone Billing Address Personal/Family Self 1960 [phone] (Work) [address] [place] [address] [facility] * Guarantor: Luh Peraza Account Type Relation to Patient Date of Phone Billing Address Personal/Family Self 1960 [phone] (Work) [address] [place] [address] Care Teams Garbage Pick Up Worker Relationship Specialty Start Date End Date Marlen Norris MD [address] [id number] PCP - General Family Medicine 09/06/17
--- OUTSIDE RECORDS SUMMARY | 2024-12-15 11:24 | XMS_ITS | Patient Health Summary ---
Author Organization [facility] Address [address] [place] [address] Care Team Providers Care Script Girl Name Role Phone Marlen Norris MD Primary Care Provider [phone] Note from [facility],non-owned Affiliates and Associated Physician Practices is amultiple site organization consisting of ambulatory clinics and hospital sitesin [place], [place], [place] and [place]. This disclosure is being madepursuant to the Care Everywhere program and may not contain all information available regarding this patient. Last updated 18.[facility] Social History Tobacco Use Types Packs/Day Years Used Date Smoking Tobacco: Never Assessed Sex and Gender Information Value Date Recorded Sex Assigned at Not on file Gender Identity Not on file Sexual Orientation Not on file Care Teams Script Girl Relationship Specialty Start Date End Date Marlen Norris MD [address] [place] [address] PCP - General Family Medicine 09/30/19
== END 2024-12-15 10:32 | disposition home or self-care (01) ==
PROVIDERS: PCP Family Medicine; Visit Provider Family Medicine
DX: K76.0 Fatty (change of) liver, not elsewhere classified (principal); Z90.49 Acquired absence of other specified parts of digestive tract
CPT/HCPCS: 76705

== ENCOUNTER 2025-10-26 15:41 | Outpatient (CLI) | payer MEDICARE, SELFPAY ==
--- NOTE | ~2025-10-26 | XR_ITS ---
XR foot RT min 3V 10/26/2025 16:03 Indication: Right foot pain Procedure: 4 views right foot Comparison: No prior studies for comparison. Findings: Mild osteoarthritis of the first MTP joint. No fracture, subluxation or dislocation. Lisfranc joint intact. No acute fracture or traumatic malalignment. No soft tissue abnormality. No foreign bodies. There are degenerative calcaneal enthesophytes. 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 Reviewed, dictated and finalized at location 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
--- OUTSIDE RECORDS SUMMARY | 2025-10-26 17:04 | XMS_ITS | Clinical Summary ---
Author Organization [facility] Address [address] [address] Phone Care Team Providers Care Retail Client Solutions Analyst Name Role Phone Marlen Norris MD Primary Care Provider [phone] Social History Tobacco Use Types Packs/Day Years [...] Cervical Cancer Screening (CCS) 1990 HPV/Cotest 1990 Cologuard 2005 Colonoscopy 2005 Colorectal Cancer Screening 2005 Immunochemical Fecal Occult Blood 2005 Pneumococcal Immunization (5 0+ years) (1 of 1 - PCV) 2010 Zoster Immunization (1 of 2) 2010 Influenza Immunization (#1) 2025 09/19/2020 SARS-COV-2 Immunization (3 - season) 2025 03/06/2021, 02/12/2021 Respiratory Syncytial Virus (RSV) Immunization (Adult) (1 - 1-dose 75+ series) 2035 Hepatitis B Immunization Aged Out No longer eligible based on patient's age to complete this topic Human Papillomavirus (HPV) Immunization Aged Out No longer eligible b ased [...] of Phone Billing Address Personal/Family Self 1960 [phone] (Work) [address] [place] [address] [facility] * Guarantor: Luh Peraza Account Type Relation to Patient Date of Phone Billing Address Personal/Family Self 1960 [phone] (Work) [address] [place] [address] Care Teams Retail Client Solutions Analyst Relationship Specialty Start Date End Date Marlen Norris MD [address] [place] [address] PCP - General Family Medicine 09/06/17
--- OUTSIDE RECORDS SUMMARY | 2025-10-26 17:04 | XMS_ITS | Clinical Summary ---
Author Organization [facility] Address [address] [place] [address] Care Team Providers Care Bath House Attendant Name Role Phone Marlen Norris MD Primary Care Provider [phone] Source Comments [facility],non-owned Affiliates and Associated Physician Practices is amultiple site organization consisting of ambulatory clinics and hospital sitesin [place], [place], [place] and [place]. This disclosure is being madepursuant to the Care Everywhere program and may not contain all information available regarding this patient. Last updated 18.[facility] Social History Tobacco Use Types Packs/Day Years Used Date Smoking Tobacco: Never Assessed Comments Unknown Sex and Gender Information Value Date Recorded Sex Assigned at Not on file Legal Sex Female 9:19 AM TE[employer]ER [employer] Gender Identity Not on file Sexual Orientation Not on file Plan of Treatment Health Maintenance Due Date Last Done Comments BONE DENSITY TESTING 1960 COLOGUARD (AGES 45-75) - COL ON CA SCREENING 1960 COLON MONITORING 1960 COLONOSCOPY - COLON CA SCREENING 1960 CT COLONOGRAPHY - COLON CA SCREENING 1960 Colorectal Cancer Screening 1960 FIT - COLON CA SCREENING 1960 FLEX SIG - COLON CA SCREENING 1960 LIPID TESTING 1960 MAMMOGRAM 1960 HIV SCREENING 1975 HEPATITIS C SCREENING 04/24/1978 DTAP/TDAP/TD VACCINES (1 - Tdap) 1979 PNEUMOCOCCAL VACCINE 50+ (1 of 1 - PCV) 2010 ZOSTER VACCINE (1 of 2) 2010 DEPRESSION SCREENING 11/05/2024 COVID-19 VACCINE ( - 2024-2 6 season) 2025 INFLUENZA VACCINE (#1) 2025 Respiratory Syncytial Virus (RSV) Vaccine Pt: or [...] to complete this topic MENINGOCOCCAL (Group B) VACC INE SHARED DECISION-MAKING Aged Out No longer eligibl e based on patient's age to complete this topic MENINGOCOCCAL GROUPS A/C/Y/W VACCINE Aged Out No longer eligible b ased on patient's age to complete this topic Insurance [employer] Care Teams Bath House Attendant Relationship Specialty Start Date End Date Marlen Norris MD [address] [id number] PCP - General Family Medicine 09/30/19
--- OUTSIDE RECORDS SUMMARY | 2025-10-26 17:04 | XMS_ITS | Encounter Summary ---
Author Organization [facility] Address [address] [place] [address] Care Team Providers Care Commercial Real Estate Associate Name Role Phone Marlen Norris MD Primary Care Provider [phone] Encounter Details Date Type Department Care Team (Late st Contact Info) Description 12/03/[address] [facility] [place], [place] [id number] Rodriguez Jimenez MD [address] [id number] Social History Tobacco Use Types Packs/Day Years [...] COVID-19? No / Unsure 12/06/2020 9:48 AM INSTRUCTOR ADJUNCT SURGICAL TECHNICIAN documented as of this encounter Plan of Treatment Not on file documented as of this encounter Results * PRE-SURGICAL/PRE-PROCEDURE CORONAVIRUS (COVID 19) (12/03/2020 10:36 AM INSTRUCTOR ADJUNCT SURGICAL TECHNICIAN) CORONAVIRUS SARS COV 2 PCR (RESP) NOT DETECTED NOT DETECTED 12/04/2020 4:31 PM INSTRUCTOR ADJUNCT SURGICAL TECHNICIAN [facility] Comment: A Not Detected (negative) test result [...] providers and patients using the following websites: https://www.[employer]/home/Covid-19/HCP/NAAT/fact-sheet2 https://www.[employer]/home/Covid-19/Patients/NAAT/ fact-sheet2 This test has been authorized by the FDA under an Emergency Use Authorization (EUA) for use by authorized laboratories. Due to the current public health emergency, [facility] is receiving a high volume of samples [...] about COVID-19 can be found at the [facility] website: www.[employer]iniens/Covid19. Test performed at [facility] [address] [address] [place] [address] Director: LILI AVILEZ DO,MPH FIRST TEST YES 12/03/2020 12:44 PM [facility] EMPLOYED IN HEALTHCARE NO 12/03/2020 12:44 PM [facility] SYMPTOMATIC DEFINED BY CDC NO 12/03/2020 12:44 PM [facility] DATE OF SYMPTOM ONSET UNKNOWN 12/03/2020 1:14 PM INSTRUCTOR ADJUNCT SURGICAL TECHNICIAN [facility] HOSPITALIZATION STATUS NO 12/03/2020 12:44 PM INSTRUCTOR ADJUNCT SURGICAL TECHNICIAN [facility] PATIENT IN ICU NO 12/03/2020 12:44 PM INSTRUCTOR ADJUNCT SURGICAL TECHNICIAN [facility] RESIDENT OF CONGREGATE CARE NO 12/03/2020 12:44 PM INSTRUCTOR ADJUNCT SURGICAL TECHNICIAN [facility] UNKNOWN 12/03/2020 1:14 PM INSTRUCTOR ADJUNCT SURGICAL TECHNICIAN [facility] PATIENT'S RACE BLACK OR 12/03/2020 12:44 PM INSTRUCTOR ADJUNCT SURGICAL TECHNICIAN [facility] ETHNICITY NONHISPANIC 12/03/2020 12:44 PM INSTRUCTOR ADJUNCT SURGICAL TECHNICIAN [facility] SOURCE (QST) NASOPHARYNGEAL SWAB 12/03/2020 12:44 PM INSTRUCTOR ADJUNCT SURGICAL TECHNICIAN [facility] NASOPHARYNGEAL SWAB / Unknown 12/03/2020 10:36 AM INSTRUCTOR ADJUNCT SURGICAL TECHNICIAN us Rodriguez Jimenez MD MICROBIOLOGY - [facility] Final Result [facility] [address] [place] [address], [facility] [address] documented in this encounter Visit Diagnoses Diagnosis AP (abdominal pain)- Primary Abdominal pain, unspecified site documented in this encounter Additional Health Concerns Infection Onset Date Last Indicated Resolved Time COVID-19 Rule Out 12/03/2020 12/03/2020 12/04/2020 4:32 PM INSTRUCTOR ADJUNCT SURGICAL TECHNICIAN documented as of this encounter Care Teams Commercial Real Estate Associate Relationship Specialty Start Date End Date Marlen Norris MD PCP - General FAMILY PRACTICE 12/03/20 documented as of this encounter
--- OUTSIDE RECORDS SUMMARY | 2025-10-26 17:04 | XMS_ITS | Clinical Summary ---
Author Organization [facility] [address] [facility] Address [address] [place] [address] Care Team Providers Care Liquid Floor And Wall Applier Name Role Phone Marlen Norris MD Primary Care Provider [phone] Allergies Active Allergy Reactions Criticality Noted Date [...] on file Legal Sex Female 3:50 AM COMPETENCY EVALUATED NURSE AIDE Gender Identity Not on file Sexual Orientation [...] 1:03 PM CDT Height 172.7 cm (5' 8) 03/12/2023 1:03 PM CDT Body Mass Index 33.45 03/12/2023 1:03 PM CDT Plan of Treatment Health Maintenance Due Date Last Done Comments Breast Cancer Screening-Mammogram 1960 Colon Cancer Screening-Colonoscopy 1960 Depression Screening 1960 Fall Risk Assessment 1960 Hepatitis C Screening 1960 Osteoporosis Screening-Bone Density Scan 1960 DTaP/Tdap/Td Vaccine (1 - Tdap) 1971 Hepatitis B Screening 1978 Pneumococcal vaccine 65+ (1 of 1 - PCV) 2010 Zoster Vaccine (1 of 2) 2010 Well Visit 65+ 2025 Covid-19 Vaccine (3 - season) 07/06/202512/2020, 02/12/2021 Influenza Vaccine (#1) 2025 09/19/2020 Insurance [employer] [facility] Care Teams Liquid Floor And Wall Applier Relationship Specialty Start Date End Date Marlen Norris MD [facility] - General 09/09/08
--- OUTSIDE RECORDS SUMMARY | 2025-10-26 17:04 | XMS_ITS | Clinical Summary ---
Author Organization [facility] Address [address] [place] [address] Care Team Providers Care Billing Supervisor Name Role Phone Marlen Norris MD Primary Care Provider [phone] Allergies Active Allergy Reactions Criticality Noted Date [...] Test 0 Active Lancets (ONETOUCH DELICA PLUS [id number]) Misc daily. 0 Active polyethylene glycol packet [...] Comments Blood Pressure 139/93 12/06/2020 1:35 PM DOOR CAPTAIN Pulse 74 12/06/2020 1:35 PM DOOR CAPTAIN Temperature 36.2 C (97.1 F) 12/06/2020 12:52 PM DOOR CAPTAIN Respiratory Rate 18 12/06/2020 1:35 PM DOOR CAPTAIN Oxygen Saturation 100% 12/06/2020 1:35 PM DOOR CAPTAIN Inhaled Oxygen Concentration - - Weight 93.9 kg (207 lb) 11/30/2020 3:21 PM DOOR CAPTAIN Height 172.7 cm (5' 8) 11/30/2020 3:21 PM DOOR CAPTAIN Body Mass Index 31.47 11/30/2020 3:21 PM DOOR CAPTAIN Plan of Treatment Health Maintenance Due Date Last Done Comments Hepatitis C 1978 DTaP, Tdap and Td Vaccines ( 1 - Tdap) 1979 Mammogram Screening 2000 Pneumococcal Vaccine: 50+ Years (1 of 1 - PCV) 2010 Zoster Vaccines (1 of 2) 2010 Dexa Scan (General) 2025 COVID-19 Vaccine ( - 2024-2 6 season) 2025 Influenza Adult (#1) 2025 09/19/2020 Colorectal Cancer Screening Colonoscopy (10 Years) 12/06/2030 12/06/2020, 12/06/2020 RSV Immunization or 60+ Years (1 - 1-dose 75+ series) 2035 Hepatitis A Vaccines Aged Out No long er eligible based on patient's age to complete this topic Meningococcal B Vaccine Aged Out No l [...] Diagnosis Comments COLONOSCOPY Routine 12/06/2020 10:25 AM DOOR CAPTAIN from Last 3 Months or Most Recently Relevant to Health Maintenance Results * Colonoscopy (12/06/2020 10:25 AM DOOR CAPTAIN) Rodriguez Amezcua MD - 12/06/2020 10:25 AM DOOR CAPTAIN Rodriguez Jimenez MD 12/06/2020 1:04 PM RODRIGUEZ JIMENEZ MD, FACG, FACP COLONOSCOPY and EGD EGD INDICATION: GERD, epigastric pain and anorexia. POST-OP: Normal. SEDATION: Per Anesthesia With the patient in the left lateral decubitus position, the Olympus [id number] endoscope was used to easily intubate the [...] the left lateral decubitus position, the Olympus [id number] colonoscope was introduced into the rectum and [...] Most Recently Relevant to Health Maintenance Insurance [facility] Care Teams Billing Supervisor Relationship Specialty Start Date End Date Marlen Norris MD PCP - General FAMILY PRACTICE 12/03/20
== END 2025-10-26 15:42 | disposition home or self-care (01) ==
PROVIDERS: PCP Student in an Organized Health Care Education/Training Program
DX: M19.071 Primary osteoarthritis, right ankle and foot (principal)
CPT/HCPCS: 73630